=== PATIENT | female | born 1950 | race Hispanic/Latino ===

== ENCOUNTER 2019-01-05 11:31 | Outpatient (CLI) | payer MEDICARE ==
--- NOTE | 2019-01-13 16:32 | MMO ---
Bilateral MAMMO Bilat Screen [facility]. CLINICAL HISTORY: Patient is 68 years old and is seen for screening. The patient has no family history of breast cancer. The patient has no personal history of cancer. VIEWS: The views performed were: bilateral craniocaudal with tomosynthesis and bilateral mediolateral oblique with tomosynthesis. FILMS COMPARED: The present examination has been compared to prior imaging studies performed at This study has been interpreted with the assistance of computer-aided detection. MAMMOGRAM FINDINGS: There are scattered fibroglandular densities. There are no suspicious masses, suspicious calcifications, or new areas of architectural distortion. IMPRESSION: THERE IS NO MAMMOGRAPHIC EVIDENCE OF MALIGNANCY. A ROUTINE FOLLOW-UP MAMMOGRAM IN 1 YEAR IS RECOMMENDED. THE RESULTS OF THIS EXAM WERE SENT TO THE PATIENT. ACR BI-RADS Category 1 - Negative MAMMOGRAPHY NOTE: 1. A negative mammogram report should not delay a biopsy if a dominant of clinically suspicious mass is present. 2. Approximately 10% to 15% of breast cancers are not detected by mammography. 3. Adenosis and dense breasts may obscure an underlying neoplasm. Reported by: REBA ROMAN MD Electonically Signed: [id number]
== END 2019-01-05 11:32 | disposition home or self-care (01) ==
LOC: BICMAMMO 11:31
PROVIDERS: ATTEND Family Medicine
DX: Z12.31 Encounter for screening mammogram for malignant neoplasm of breast (principal)
CPT/HCPCS: 77063; 77067

== ENCOUNTER 2020-10-13 09:44 | Outpatient (CLI) | payer MEDICARE ==
[2020-10-13] MEDS ORDERED: Magnevist 469MG/ML 20 ML VIAL ONE (11:18)
== END 2020-10-13 09:45 | disposition home or self-care (01) ==
LOC: BICMRI 09:44 → MRI 09:45
PROVIDERS: ATTEND Internal Medicine Cardiovascular Disease
DX: H53.47 Heteronymous bilateral field defects (principal); E23.6 Other disorders of pituitary gland
CPT/HCPCS: 70553; 82565

== ENCOUNTER 2021-09-07 11:29 | Outpatient (CLI) | payer OTHER, MEDICAID | END 2021-09-07 11:30 | disposition home or self-care (01) | LOC: BICMAMMO 11:29 | PROVIDERS: ATTEND Family Medicine | DX: Z12.31 Encounter for screening mammogram for malignant neoplasm of breast (principal) | CPT/HCPCS: 77063; 77067 ==

== ENCOUNTER 2021-10-12 13:41 | Outpatient (CLI) | payer OTHER | END 2021-10-12 13:42 | disposition home or self-care (01) | LOC: ULT 13:41 | PROVIDERS: ATTEND Family Medicine | DX: S89.92XA Unspecified injury of left lower leg, initial encounter (principal); M79.89 Other specified soft tissue disorders | CPT/HCPCS: 93923 ==

== ENCOUNTER 2022-11-26 13:33 | Outpatient (CLI) | payer OTHER, MEDICAID ==
[~2022-11-26 13:33] MED LIST: Magnevist 469MG/ML 20 ML VIAL ONE
== END 2022-11-26 13:34 | disposition home or self-care (01) ==
LOC: BICMRI 13:33
PROVIDERS: ATTEND Internal Medicine Cardiovascular Disease
DX: E23.6 Other disorders of pituitary gland (principal); G93.89 Other specified disorders of brain; Z86.73 Personal history of transient ischemic attack (TIA), and cerebral infarction without residual deficits
CPT/HCPCS: 70553; 82565; A9579

== ENCOUNTER 2023-01-21 12:40 | Outpatient (CLI) | payer OTHER ==
[2023-01-21] MEDS ORDERED: Iopamidol 370 76% 100 ML VIAL ONE (15:26)
== END 2023-01-21 12:41 | disposition home or self-care (01) ==
LOC: CT 12:40
PROVIDERS: ATTEND Family Medicine
DX: G45.3 Amaurosis fugax (principal)
CPT/HCPCS: 70496; 70498; Q9967

== ENCOUNTER 2023-11-18 13:17 | Outpatient (CLI) | payer OTHER, MEDICAID | END 2023-11-18 13:18 | disposition home or self-care (01) | LOC: MRI 13:17 | PROVIDERS: ATTEND Family Medicine | DX: R41.3 Other amnesia (principal); I67.89 Other cerebrovascular disease; J32.0 Chronic maxillary sinusitis | CPT/HCPCS: 70553; 76377; A9579 ==